=== PATIENT | male | born 1940 | race Caucasian/White ===

== ENCOUNTER 2017-06-10 21:12 | Emergency (ER) | payer BC, MEDICARE ==
[~2017-06-10] VITALS: Ht 177.8 cm; Wt 104.3 kg
[~2017-06-10 21:12] MED LIST: ASPI325T PO; DARV PO; LIPI40TA PO; LORT5TAB PO; TAMS0.4C67 PO; TOPR25TA2 PO; VESI5TAB PO
[2017-06-10 21:18] VITALS: BP 118/79; PULSE 80; RESP 20; TEMP 97.7
--- NOTE | 2017-06-10 21:41 | PD ---
HPI Chief Complaint: Complaint Time Seen by Provider: 21:25 Travel History International Travel<30 days: No Contact w/Intl Traveler<30days: No Traveled to known affect area: No History of Present Illness HPI This is a 76-year-old male who presents to the emergency department with a history of enlarged prostate having been drinking beer this evening watching football when he was unable to urinate. He hasn't been able to urinate for 4-5 hours and he has lower abdominal pain, constant, moderate severity, nonradiating with no associated fevers chills or vomiting. He does have a urologist that he follows with. He's required a Prieto catheter in the past. PFSH Past Medical History Arthritis: No Atrial Fibrillation: Yes Blood Disorders: No Heart Rhythm Problems: Yes (HX OF AFLUTTER) Cancer: No Cardiac Catheterization: No Cardiovascular Problems: Yes High Cholesterol: Yes Chemotherapy: No Chest Pain: No Congestive Heart Failure: No Cerebrovascular Accident: No Diabetes: No Diminished Hearing: Yes (SOME [place]) Endocrine: No GERD: Yes Genitourinary: Yes Headaches: No Hepatitis: No Hiatal Hernia: No Hypertension: Yes Immune Disorder: No Implanted Vascular Access Dvce: No Kidney Stones: No Musculoskeletal: Yes (CHRONIC BACK PAIN) Neurologic: Yes Psychiatric: No Reproductive: Yes (ENLARGED PROSTATE) Respiratory: No Immunizations Current: No Migraines: No Myocardial Infarction: No Radiation Therapy: No Renal Failure: No Seizures: No Ulcer: Yes Past Surgical History Abdominal Surgery: No Appendectomy: No Body Medical Devices: PINS AND SCREW RIGHT ANKLE Cardiac Surgery: No Cholecystectomy: No Coronary Artery Bypass Graft: No Ear Surgery: No Endocrine Surgery: No Eye Surgery: No Genitourinary Surgery: No Gynecologic Surgery: No Thoracic Surgery: No Tonsillectomy: Yes Other Surgery: Yes (CYST REMOVAL) Social History Alcohol Use: Yes (5 BEERS TWICE A WEEK) Tobacco Use: Yes (1 PACK PER WEEK) Substance Use: No Allergies-Medications (Allergen,Severity, Reaction): Coded Allergies: No Known Allergies (Verified Adverse Reaction, Unknown, 06/10/17) Reported Meds & Prescriptions Reported Meds & Active Scripts Active Reported Tamsulosin (Tamsulosin HCl) 0.4 Mg Cap 0.4 Mg PO DAILY Vesicare (Solifenacin) 5 Mg Tab 5 Mg PO DAILY Metoprolol Succinate ER 24 HR (Metoprolol Succinate) 25 Mg Tab 25 Mg PO DAILY Atorvastatin (Atorvastatin Calcium) 40 Mg Tab 40 Mg PO HS Aspirin 325 Mg Tab 325 Mg PO DAILY Review of Systems Except as stated in HPI: all other systems reviewed are Neg Physical Exam Narrative GENERAL:Well appearing, no acute distress SKIN: Focused skin assessment warm and dry. HEAD: Atraumatic. Normocephalic. EYES: Pupils equal and round. No injection or drainage. ENT: Moist mucous membranes NECK: Trachea midline. CARDIOVASCULAR: Regular rate and rhythm. No murmur appreciated. RESPIRATORY: Clear to auscultation. Breath sounds equal bilaterally. GASTROINTESTINAL: Abdomen soft, tender to palpation in suprapubic region with no rebound or guarding. Bladder is distended. MUSCULOSKELETAL: No obvious deformities. NEUROLOGICAL: Awake and alert. No obvious cranial nerve deficits. Moving all extremities. PSYCHIATRIC: Appropriate mood and affect; insight and judgment normal. Data Data Last Documented VS Vital Signs Date Time Temp Pulse Resp B/P (MAP) Pulse Ox O2 Delivery O2 Flow Rate FiO2 06/10/17 21:30 82 16 06/10/17 21:18 97.7 118/79 (92) Orders Orders Urinary Catheter Insert/Apply (06/10/17 21:25) [facility] Medical Decision Making Medical Screen Exam Complete: Yes Emergency Medical Condition: Yes Interpretation(s) Afebrile, no tachycardia, normotensive Differential Diagnosis Acute urinary retention Narrative Course This is a 76-year-old male who has a history of enlarged prostate. He presents to the emergency department with difficulty urinating. A Prieto catheter was placed. 800 cc of urine came out. I think patient can be discharged home to follow up with urology. Diagnosis Primary Impression: Acute urinary retention Patient Instructions: General Instructions Additional Instructions: If you develop severe or worsening abdominal pain, fever>100.4, persistent vomiting or inability to eat or drink return to the emergency department immediately. Follow-up with your urologist as soon as possible. Med/Other Pt SpecificInfo: No Change to Meds Disposition: 01 DISCHARGE HOME Condition: Stable Arabella Cerrato MD Jun 10, 2017 21:41
[2017-06-10] MEDS ORDERED: ASPI-183 PO (22:08)
[2017-06-10] MEDS ORDERED: METO1TAB42 PO (22:08)
[2017-06-10] MEDS ORDERED: VESI5TAB2 PO (22:08)
[2017-06-10] MEDS ORDERED: TAMS0.4C4 PO (22:08)
[2017-06-10] MEDS ORDERED: ATOR40TA16 PO (22:08)
[2017-06-10 22:34] VITALS: BP 80/53; PULSE 73; RESP 16; O2SAT 95
[2017-06-10 22:41] VITALS: BP 81/64; PULSE 70; RESP 16
[2017-06-10] MEDS ORDERED: SODIUM CHLOR 0.9% 1000 ML INJ 1,000 ML IV ONE (22:45)
[2017-06-10 23:08] LABS: BILIRUBIN, URINE NEG (NEG); BLOOD, URINE TRACE (NEG); GLUCOSE,URINE NEG (NEG); KETONE, URINE NEG (NEG); NITRITE,URINE NEG (NEG); URINE LEUKOCYTE ESTERASE SMALL (NEG)
[2017-06-10 23:09] LABS: AUTOMATED NEUTROPHIL # 3.6 TH/MM3 (1.8-7.7); BASOPHIL # 0.1 TH/MM3 (0-0.2); BASOPHIL % 0.8 % (0.0-2.0); EOSINOPHIL # 0.2 TH/MM3 (0-0.4); EOSINOPHIL % 2.9 % (0.0-4.0); HEMATOCRIT 46.8 % (39.0-51.0); HEMOGLOBIN 15.2 GM/DL (13.0-17.0); LYMPH % 33.9 % (9.0-44.0); LYMPHOCYTE # 2.2 TH/MM3 (1.0-4.8); MEAN CELL VOLUME 91.5 FL (80.0-100.0); MEAN CORPUSCULAR HEMOGLOBIN 29.7 PG (27.0-34.0); MEAN CORPUSCULAR HGB CONC 32.5 % (32.0-36.0); MONO % 8.2 % (0.0-8.0); MONOCYTE # 0.5 TH/MM3 (0-0.9); NEUT % 54.2 % (16.0-70.0); PLATELET COUNT 230 TH/MM3 (150-450); RED BLOOD COUNT 5.12 MIL/MM3 (4.50-5.90); RED CELL DISTRIBUTION WIDTH 13.9 % (11.6-17.2); WHITE BLOOD COUNT 6.6 TH/MM3 (4.0-11.0)
[2017-06-10 23:17] LABS: CALCIUM 8.9 MG/DL (8.5-10.1)
[2017-06-10 23:18] LABS: BICARBONATE 23.7 MEQ/L (21.0-32.0)
[2017-06-10 23:21] LABS: CREATININE 0.86 MG/DL (0.60-1.30)
[2017-06-10 23:42] LABS: URINE COLOR STRAW (YELLW/STRAW)
[2017-06-10 23:43] LABS: BACTERIA, URINE OCC /hpf; RBC, URINE 0-3 /hpf (0-3); SQUAMOUS EPITHELIAL CELL URINE 0-5 /hpf (0-5); WHITE BLOOD CELL CLUMPS OCC
[2017-06-10 23:54] VITALS: BP 84/65; PULSE 69; RESP 18; O2SAT 97
[2017-06-11 00:05] VITALS: BP 87/65; PULSE 72; RESP 16; O2SAT 95
[2017-06-11 00:10] VITALS: BP 109/72; PULSE 73; RESP 16; O2SAT 95
[2017-06-11 01:17] VITALS: BP 98/73
== END 2017-06-11 01:22 | disposition home or self-care (01) ==
LOC: PHED 21:12
DX: R33.9 Retention of urine, unspecified (principal); N40.0 Benign prostatic hyperplasia without lower urinary tract symptoms; B96.1 Klebsiella pneumoniae [K. pneumoniae] as the cause of diseases classified elsewhere; I10 Essential (primary) hypertension; Z72.0 Tobacco use
CPT/HCPCS: 51702; 80048; 81001; 85025; 87077; 87086; 87186; 96360; 99283; J7030

== ENCOUNTER 2017-09-08 10:42 | Emergency (ER) | payer MEDICARE ==
[~2017-09-08 10:42] MED LIST changes: +ASPI-183 PO; -ASPI325T PO; +ATOR40TA16 PO; -DARV PO; -LIPI40TA PO; -LORT5TAB PO; +METO1TAB42 PO; +TAMS0.4C4 PO; -TAMS0.4C67 PO; -TOPR25TA2 PO; -VESI5TAB PO; +VESI5TAB2 PO
[2017-09-08 10:50] VITALS: BP 107/52; PULSE 66; RESP 18; TEMP 97.6; O2SAT 96
[2017-09-08 10:53] VITALS: O2SAT 98
--- NOTE | 2017-09-08 10:59 | PD ---
HPI Chief Complaint: neuro symptoms Time Seen by Provider: 10:50 Travel History International Travel<30 days: No Contact w/Intl Traveler<30days: No Traveled to known affect area: No History of Present Illness HPI Patient presents via private vehicle for neuro symptoms. States approximately 10:15 he noticed mildly slurred speech with difficulty answering his 's questions. Denies any extremity weakness. Denies any facial asymmetry. Feels back to baseline at this time. Past medical history for hypertension, BPH and hyperlipidemia. Denies diabetes. Symptoms lasted approximately 20 minutes. Patient does take aspirin daily. He has not eaten breakfast nor taken his daily medications. Patient does see a neurologist for tremor. PFSH Past Medical History Arthritis: No Atrial Fibrillation: Yes Blood Disorders: No Heart Rhythm Problems: Yes (HX OF AFLUTTER) Cancer: No Cardiac Catheterization: No Cardiovascular Problems: Yes High Cholesterol: Yes Chemotherapy: No Chest Pain: No Congestive Heart Failure: No Cerebrovascular Accident: No Diabetes: No Diminished Hearing: Yes (SOME [place]) Endocrine: No Gastrointestinal Disorders: Yes GERD: Yes Genitourinary: Yes Headaches: No Hepatitis: No Hiatal Hernia: No Hypertension: Yes Immune Disorder: No Implanted Vascular Access Dvce: No Kidney Stones: No Musculoskeletal: Yes (CHRONIC BACK PAIN) Neurologic: Yes Psychiatric: No Reproductive: Yes (ENLARGED PROSTATE) Respiratory: No Immunizations Current: No Migraines: No Myocardial Infarction: No Radiation Therapy: No Renal Failure: No Seizures: No Ulcer: Yes Past Surgical History Abdominal Surgery: No Appendectomy: No Body Medical Devices: PINS AND SCREW RIGHT ANKLE Cardiac Surgery: No Cholecystectomy: No Coronary Artery Bypass Graft: No Ear Surgery: No Endocrine Surgery: No Eye Surgery: No Genitourinary Surgery: Yes (Surgery on Prostate) Gynecologic Surgery: No Oral Surgery: Yes (TONSILS REMOVE) Thoracic Surgery: No Tonsillectomy: Yes Other Surgery: Yes (CYST REMOVAL) Social History Alcohol Use: Yes (5 BEERS TWICE A WEEK) Tobacco Use: Yes (1 PACK PER WEEK) Substance Use: No Allergies-Medications (Allergen,Severity, Reaction): Coded Allergies: No Known Allergies (Verified Adverse Reaction, Unknown, 09/08/17) Reported Meds & Prescriptions Reported Meds & Active Scripts Active Reported Propranolol (Propranolol HCl) 10 Mg Tab 10 Mg PO Q12HR Valsartan 160 Mg Tab 160 Mg PO DAILY Tamsulosin (Tamsulosin HCl) 0.4 Mg Cap 0.4 Mg PO DAILY Atorvastatin (Atorvastatin Calcium) 40 Mg Tab 40 Mg PO HS Aspirin 325 Mg Tab 325 Mg PO DAILY Review of Systems ROS Limitations: Speech Impaired General / Constitutional: No: Fever Eyes: No: Visual changes HENT: No: Headaches Cardiovascular: No: Chest Pain or Discomfort Respiratory: No: Shortness of Breath Gastrointestinal: No: Abdominal Pain Genitourinary: No: Dysuria Musculoskeletal: No: Pain Skin: No Rash Neurologic: No: Weakness Psychiatric: No: Depression Endocrine: No: Polydipsia Hematologic/Lymphatic: No: Easy Bruising Physical Exam Narrative GENERAL: Alert and oriented at this time answering questions appropriately SKIN: Focused skin assessment warm/dry. HEAD: Atraumatic. Normocephalic. EYES: Pupils equal and round. No scleral icterus. No injection or drainage. ENT: No nasal bleeding or discharge. Mucous membranes pink and moist. NECK: Trachea midline. No JVD. CARDIOVASCULAR: Regular rate and rhythm. No murmur appreciated. RESPIRATORY: No accessory muscle use. Clear to auscultation. Breath sounds equal bilaterally. GASTROINTESTINAL: Abdomen soft, non-tender, nondistended. Hepatic and splenic margins not palpable. MUSCULOSKELETAL: No obvious deformities. No clubbing. No cyanosis. No edema. NEUROLOGICAL: Awake and alert. No obvious cranial nerve deficits. Motor grossly within normal limits. Normal speech. PSYCHIATRIC: Appropriate mood and affect; insight and judgment normal. Data Data Last Documented VS Vital Signs Date Time Temp Pulse Resp B/P (MAP) Pulse Ox O2 Delivery O2 Flow Rate FiO2 09/08/17 13:25 66 18 127/62 (83) 97 Room Air 09/08/17 10:50 97.6 Orders Orders Electrocardiogram (09/08/17 10:50) Prothrombin Time / Inr (Pt) (09/08/17 10:50) Complete Blood Count With Diff (09/08/17 10:50) Comprehensive Metabolic Panel (09/08/17 10:50) Troponin I (09/08/17 10:50) Urinalysis - C+S If Indicated (09/08/17 10:50) Ct Brain W/O Iv Contrast(Rout) (09/08/17 10:50) Chest, Single Ap (09/08/17 10:50) Ecg Monitoring (09/08/17 10:50) Iv Access Insert/Monitor (09/08/17 10:50) Oximetry (09/08/17 10:50) Blood Glucose (09/08/17 10:50) Aspirin (Aspirin) (09/08/17 11:00) Sodium Chloride 0.9% Flush (Ns Flush) (09/08/17 11:00) Hemoglobin (Hgb) A1c (09/08/17 10:50) Sodium Chlor 0.9% 1000 Ml Inj (Ns 1000 M (09/08/17 11:45) Urine Culture (09/08/17 12:20) Labs Laboratory Tests Test 09/08/17 10:45 09/08/17 12:20 White Blood Count 8.7 TH/MM3 Red Blood Count 3.35 MIL/MM3 Hemoglobin 10.6 GM/DL Hematocrit 30.6 % Mean Corpuscular Volume 91.1 FL Mean Corpuscular Hemoglobin 31.7 PG Mean Corpuscular Hemoglobin Concent 34.8 % Red Cell Distribution Width 15.3 % Platelet Count 199 TH/MM3 Mean Platelet Volume 8.0 FL Neutrophils (%) (Auto) 47.6 % Lymphocytes (%) (Auto) 38.9 % Monocytes (%) (Auto) 11.8 % Eosinophils (%) (Auto) 1.5 % Basophils (%) (Auto) 0.2 % Neutrophils # (Auto) 4.2 TH/MM3 Lymphocytes # (Auto) 3.4 TH/MM3 Monocytes # (Auto) 1.0 TH/MM3 Eosinophils # (Auto) 0.1 TH/MM3 Basophils # (Auto) 0.0 TH/MM3 CBC Comment DIFF FINAL Differential Comment Prothrombin Time 11.1 SEC Prothromb Time International Ratio 1.1 RATIO Blood Urea Nitrogen 47 MG/DL Creatinine 0.98 MG/DL Random Glucose 121 MG/DL Total Protein 6.6 GM/DL Albumin 3.2 GM/DL Calcium Level 7.9 MG/DL Alkaline Phosphatase 60 U/L Aspartate Amino Transf (AST/SGOT) 16 U/L Alanine Aminotransferase (ALT/SGPT) 31 U/L Total Bilirubin 0.4 MG/DL Sodium Level 141 MEQ/L Potassium Level 4.5 MEQ/L Chloride Level 110 MEQ/L Carbon Dioxide Level 23.8 MEQ/L Anion Gap 7 MEQ/L Estimat Glomerular Filtration Rate 74 ML/MIN Hemoglobin A1c 5.5 % Troponin I LESS THAN 0.02 NG/ML Urine Collection Type CATH Urine Color YELLOW Urine Turbidity CLEAR Urine pH 5.0 Urine Specific [place] 1.015 Urine Protein NEG mg/dL Urine Glucose (UA) NEG mg/dL Urine Ketones NEG mg/dL Urine Occult Blood NEG Urine Nitrite POS Urine Bilirubin NEG Urine Urobilinogen 0.2 MG/DL Urine Leukocyte Esterase SMALL Urine RBC 0-3 /hpf Urine WBC 3-5 /hpf Urine Bacteria FEW /hpf Microscopic Urinalysis Comment CATH-CULTURE IND Urine Collection Time 12:20 [facility] Medical Decision Making Medical Screen Exam Complete: Yes Emergency Medical Condition: Yes Differential Diagnosis TIA versus CVA versus hyperglycemia Narrative Course Assessment plan discussed with patient at bedside. ABCD squared score of 3 for low risk. EKG reveals sinus rhythm rate of 67 with right bundle branch block. Last [address] 09/08/17 1050 Signed Impressions: Service Date/Time: Friday, September 08, 2017 11:12 - CONCLUSION: No acute disease. Marie Bella MD Chest X-Ray 09/08/17 1050 Signed Impressions: Service Date/Time: Friday, September 08, 2017 11:27 - CONCLUSION: No acute disease. Marie Bella MD Upon further questioning with present. She relays that the patient was recently started on Inderal by his neurologist for tremor. Concerns that he might of been a little hypotensive and under perfusing. Offered admission for observation versus outpatient follow-up and medication change since he is low risk Diagnosis Primary Impression: TIA (transient ischemic attack) Qualified Codes: G45.9 - Transient cerebral ischemic attack, unspecified Patient Instructions: General Instructions Additional Instructions: Encouraged to hold blood pressure medications. Encouraged a blood pressure log for evaluation of follow-up. Stop daily aspirin, start Aggrenox. Encouraged to follow-up with his neurologist Sunday. Return to emergency room with any onset of new symptoms. Med/Other Pt SpecificInfo: Prescription(s) given Scripts Dipyridamole-Aspirin (Aggrenox) 200-25 Mg Cap 1 CAP PO BID for Prevent Blood Clot, #60 CAP 0 Refills Prov: Michel Alvarado MD 09/08/17 Disposition: 01 DISCHARGE HOME Condition: Good Michel Alvarado MD Sep 08, 2017 10:59
[2017-09-08] MEDS ORDERED: ASPIRIN 325 MG TAB PO ONE (11:00)
[2017-09-08] MEDS ORDERED: SODIUM CHLORIDE 0.9% FLUSH 10 ML FLUSH IVF PRN (11:00)
[2017-09-08] MEDS ORDERED: PROP10TA6 PO (11:06)
[2017-09-08] MEDS ORDERED: VALS1TAB65 PO (11:06)
[2017-09-08 11:17] LABS: CHLORIDE 110 MEQ/L (98-107); SODIUM (NA) 141 MEQ/L (136-145)
[2017-09-08 11:20] LABS: CALCIUM 7.9 MG/DL (8.5-10.1); INTERNATIONAL NORMALIZED RATIO 1.1 RATIO; PROTHROMBIN TIME - PATIENT 11.1 SEC (9.8-11.6)
[2017-09-08 11:21] LABS: ALBUMIN 3.2 GM/DL (3.4-5.0); BICARBONATE 23.8 MEQ/L (21.0-32.0); BLOOD UREA NITROGEN 47 MG/DL (7-18); GLUCOSE,RANDOM 121 MG/DL (74-106)
[2017-09-08 11:23] VITALS: BP_SYST 67; BP_SYST 99; BP_DIAS 51; BP_DIAS 53; PULSE 72; RESP 18; O2SAT 97
[2017-09-08 11:24] LABS: ALT (GPT) 31 U/L (12-78); AST (GOT) 16 U/L (15-37); CREATININE 0.98 MG/DL (0.60-1.30); GLOMERULAR FILTRATION RATE 74 ML/MIN (>89)
[2017-09-08 11:25] LABS: TOTAL BILIRUBIN ADULT 0.4 MG/DL (0.2-1.0); TOTAL PROTEIN 6.6 GM/DL (6.4-8.2)
[2017-09-08 11:26] LABS: AUTOMATED NEUTROPHIL # 4.2 TH/MM3 (1.8-7.7); BASOPHIL % 0.2 % (0.0-2.0); EOSINOPHIL # 0.1 TH/MM3 (0-0.4); EOSINOPHIL % 1.5 % (0.0-4.0); HEMATOCRIT 30.6 % (39.0-51.0); HEMOGLOBIN 10.6 GM/DL (13.0-17.0); LYMPH % 38.9 % (9.0-44.0); LYMPHOCYTE # 3.4 TH/MM3 (1.0-4.8); MEAN CELL VOLUME 91.1 FL (80.0-100.0); MEAN CORPUSCULAR HEMOGLOBIN 31.7 PG (27.0-34.0); MEAN CORPUSCULAR HGB CONC 34.8 % (32.0-36.0); MONO % 11.8 % (0.0-8.0); NEUT % 47.6 % (16.0-70.0); PLATELET COUNT 199 TH/MM3 (150-450); RED BLOOD COUNT 3.35 MIL/MM3 (4.50-5.90); RED CELL DISTRIBUTION WIDTH 15.3 % (11.6-17.2); WHITE BLOOD COUNT 8.7 TH/MM3 (4.0-11.0)
--- NOTE | 2017-09-08 11:26 | RADRPT ---
EXAM DATE/TIME: 09/08/2017 11:12 [facility] COMPARISON: No previous studies available for comparison. INDICATIONS : Slurred speech this morning. RADIATION DOSE: 60.41 CTDIvol (mGy) MEDICAL HISTORY : Cardiovascular disease. Hypercholesterolemia. Hypertension.GERD,A Fib, spinal stenosis SURGICAL HISTORY : For enlarged prostate ENCOUNTER: Initial ACUITY: 1 day PAIN SCALE: 0/10 LOCATION: cranial TECHNIQUE: Multiple contiguous axial images were obtained of the head. Using automated exposure control and adj ustment of the mA and/or kV according to patient size, radiation dose was kept as low as reasonably a chievable to obtain optimal diagnostic quality images. DICOM format image data is available electro nically for review and comparison. FINDINGS: CEREBRUM: The ventricles are normal for age. No evidence of midline shift, mass lesion, hemorrhage or acute in farction. No extra-axial fluid collections are seen. POSTERIOR FOSSA: The cerebellum and brainstem are intact. The 4th ventricle is midline. The cerebellopontine angle i s unremarkable. EXTRACRANIAL: The visualized portion of the orbits is intact. SKULL: The calvaria is intact. No evidence of skull fracture. CONCLUSION: No acute disease. Marie Bella MD on September 08, 2017 at 11:23 Board Certified Radiologist. This report was verified electronically.
[2017-09-08 11:27] LABS: ALKALINE PHOSPHATASE 60 U/L (45-117)
[2017-09-08 11:29] LABS: TROPONIN I LESS THAN 0.02 NG/ML (0.02-0.05)
--- NOTE | 2017-09-08 11:42 | RADRPT ---
EXAM DATE/TIME: 09/08/2017 11:27 [facility] COMPARISON: No previous studies available for comparison. INDICATIONS : Weakness. Neuro symptoms. MEDICAL HISTORY : None. SURGICAL HISTORY : None. ENCOUNTER: Initial ACUITY: 1 day PAIN SCORE: 5/10 LOCATION: Bilateral chest FINDINGS: A single view of the chest demonstrates the lungs to be symmetrically aerated without evidence of mas s, infiltrate or effusion. The cardiomediastinal contours are unremarkable. Osseous structures are intact. CONCLUSION: No acute disease. Marie Bella MD on September 08, 2017 at 11:39 Board Certified Radiologist. This report was verified electronically.
[2017-09-08] MEDS ORDERED: SODIUM CHLOR 0.9% 1000 ML INJ 1,000 ML IV ONE (11:45)
[2017-09-08 11:55] VITALS: BP 119/55; PULSE 63; RESP 18; O2SAT 99
[2017-09-08 12:26] LABS: BILIRUBIN, URINE NEG (NEG); BLOOD, URINE NEG (NEG); GLUCOSE,URINE NEG (NEG); KETONE, URINE NEG (NEG); NITRITE,URINE POS (NEG); URINE COLOR YELLOW (YELLW/STRAW); URINE LEUKOCYTE ESTERASE SMALL (NEG)
[2017-09-08 12:53] LABS: BACTERIA, URINE FEW /hpf; RBC, URINE 0-3 /hpf (0-3)
[2017-09-08 13:22] LABS: HEMOGLOBIN A1C 5.5 % (4.3-6.0)
[2017-09-08 13:25] VITALS: BP 127/62; PULSE 66; RESP 18; O2SAT 97
[2017-09-08] MEDS ORDERED: AGGR20025 PO (13:52)
--- NOTE | 2017-09-09 16:25 | EKG ---
Date Performed: 09/08/2017 Time Performed: 10:56:57 PTAGE: 77 years EKG: Sinus rhythm INDETERMINATE AXIS RIGHT BUNDLE BRANCH BLOCK Since the previous tracing, no significant change noted ABNORMAL ECG PREVIOUS TRACING : 11/22/2009 10.24 DOCTOR: Vicente Abbott Interpretating Date/Time 09/09/2017 16:23:14
== END 2017-09-08 14:02 | disposition home or self-care (01) ==
LOC: PHED 10:42
DX: G45.9 Transient cerebral ischemic attack, unspecified (principal); I45.19 Other right bundle-branch block; N39.0 Urinary tract infection, site not specified; B96.1 Klebsiella pneumoniae [K. pneumoniae] as the cause of diseases classified elsewhere; R79.89 Other specified abnormal findings of blood chemistry; N40.0 Benign prostatic hyperplasia without lower urinary tract symptoms; I10 Essential (primary) hypertension; Z79.82 Long term (current) use of aspirin; I48.91 Unspecified atrial fibrillation; E78.00 Pure hypercholesterolemia, unspecified; K21.9 Gastro-esophageal reflux disease without esophagitis; Z72.0 Tobacco use
CPT/HCPCS: 70450; 71045; 80053; 81001; 83036; 84484; 85025; 85610; 87077; 87086; 87186; 93005; 96360; 99285; J7030